=== PATIENT | male | born 1980 | race Caucasian/White ===

== ENCOUNTER 2017-03-25 09:05 | Outpatient (CLI) | payer OTHER | END 2017-03-25 09:06 | disposition home or self-care (01) | DX: M85.89 Other specified disorders of bone density and structure, multiple sites (principal) ==

== ENCOUNTER 2019-09-27 14:00 | Outpatient (CLI) | payer OTHER ==
--- NOTE | 2019-09-28 15:51 | DEXA Report ---
Reason: OSTEOPENIA Procedure Date: 09/27/2019 Accession Number: [id number] / [id number] Procedure: DEX - Dexa Spine and/or Hip CPT Code: Final Report FULL RESULT: EXAM: Dexa Spine and/or Hip DATE: 09/27/2019 3:31 PM CLINICAL HISTORY: OSTEOPENIA TECHNIQUE: Dual energy x-ray absorptiometry (DXA) was performed on a [employer] System. Regions measured are the AP Spine, femoral neck, and if needed forearm. COMPARISON: 03/25/2017 In accordance with the International Society for Clinical Densitometry (ISCD) guidelines, data from previous exams may be reanalyzed using current recommendations and techniques. This is done to allow a more accurate basis for comparison with the current study. FINDINGS: The data for the lumbar spine is as follows: BMD (g/cm/cm) T-SCORE Z-SCORE REGION L1 1.064 -0.8 -1.2 L2 1.018 -1.8 -2.2 L3 1.044 -1.6 -2.0 L4 0.987 -2.1 -2.5 TOTAL 1.027 -1.6 -2.0 NOTE: All evaluable vertebrae are used for classification The data for the hip is as follows: BMD (g/cm/cm) T-SCORE Z-SCORE REGION Neck 0.807 -2.0 -1.9 TOTAL 0.830 -1.9 -1.9 NOTE: The femoral neck or total proximal femur, whichever is lowest, is used for classification. DXA RESULTS SUMMARY: Spine SCAN DATE AGE BMD CHANGE VS CHANGE VS PREVIOUS PREVIOUS % 09/27/2019 41.5 1.027 -0.015 -1.4 03/25/2017 37.0 1.042 * Denotes significant change at the 95% confidence level. Denotes dissimilar scan types or analysis methods. DXA RESULTS SUMMARY: Hip SCAN DATE AGE BMD CHANGE VS CHANGE VS PREVIOUS PREVIOUS % 09/27/2019 41.5 0.830 0.013 1.6 03/25/2017 37.0 0.817 * Denotes significant change at the 95% confidence level. Denotes dissimilar scan types or analysis methods. IMPRESSION: THE WHO CLASSIFICATION BASED ON THE INTERNATIONAL REFERENCE STANDARD IS OSTEOPENIA. THE FRACTURE RISK IS INCREASED. RECOMMENDATION: Patients with diagnosis of osteoporosis or osteopenia should have regular bone mineral density assessment. For those eligible for Medicare, routine testing is allowed once every 2 years. Testing frequency can be increased for patients who have rapidly progressing disease or for those who are receiving medical therapy to restore bone mass. COMMENT: World Health Organization (WHO) definitions for osteoporosis and osteopenia: NORMAL BMD: T-score at -1.0 or higher, fracture risk is low OSTEOPENIA BMD: T-score between -1.0 and -2.5, fracture risk is increased. OSTEOPOROSIS BMD: T-score at -2.5 or lower, fracture risk is high. National Osteoporosis Foundation recommends: 1. Obtain adequate dietary calcium (at least 1200 mg per day) and vitamin D (400-800 international units per day). 2. Participate, as appropriate, in regular weightbearing and muscle-strengthening exercise. 3. Avoid tobacco use and reduce alcohol and caffeine intake. 4. For more detailed information see the website at www.NOF.org.
== END 2019-09-27 14:01 | disposition home or self-care (01) ==
LOC: DI 14:00
DX: M85.89 Other specified disorders of bone density and structure, multiple sites (principal)
CPT/HCPCS: 77080

== ENCOUNTER 2021-06-01 12:23 | Outpatient (CLI) | payer OTHER | END 2021-06-01 23:59 | disposition home or self-care (01) | LOC: LAB.N 12:23 | PROVIDERS: ATTEND Physician Assistant Medical | DX: B37.42 Candidal balanitis (principal) | CPT/HCPCS: 87086 ==

== ENCOUNTER 2022-03-19 10:24 | Outpatient (CLI) | payer OTHER ==
--- NOTE | 2022-03-19 11:29 | DEXA Report ---
PROCEDURE: Dexa Spine and/or Hip INDICATIONS: OSTEOPENIA TECHNIQUE: Dual energy x-ray absorptiometry (DXA) was performed on a [employer] System. Regions measur ed are the AP Spine, femoral neck, and if needed forearm. COMPARISON: September 27, 2019. FINDINGS: Lumbar Spine: Bone Mineral Density 1.007 g/cm/cm,T score -1.8, osteopenia; -1.9% change. Left Hip: Bone Mineral Density 0.825 g/cm/cm,T score -1.9, osteopenia; -0.6% change Left Femoral Neck: Bone Mineral Density 0.816 g/cm/cm, T score -2.0, osteopenia (T score greater or equal to -1.0: NORMAL) (T score from -1.1 to -2.4: OSTEOPENIA) (T score less than or equal to -2.5 to: OSTEOPOROSIS) Impression: Bone mineral density as detailed above. Patients with diagnosis of osteoporosis or osteopenia should have regular bone mineral density assess ment. For those eligible for Medicare, routine testing is allowed once every 2 years. Testing frequ ency can be increased for patients who have rapidly progressing disease or for those who are receivin g medical therapy to restore bone mass. Reviewed by: Edwardo Mansfield MD on 03/19/2022 11:28 AM PDT Approved by: Edwardo Mansfield MD on 03/19/2022 11:28 AM PDT Station ID: [id number]
== END 2022-03-19 10:25 | disposition home or self-care (01) ==
LOC: DI 10:24
PROVIDERS: ATTEND Internal Medicine
DX: M85.89 Other specified disorders of bone density and structure, multiple sites (principal)

== ENCOUNTER 2022-07-26 08:30 | Outpatient (CLI) | payer OTHER | END 2022-07-26 08:31 | disposition home or self-care (01) | LOC: SC 08:30 | PROVIDERS: ATTEND Nurse Practitioner Family | DX: R09.02 Hypoxemia (principal) | CPT/HCPCS: 95806 ==

== ENCOUNTER 2022-08-11 09:29 | Outpatient (CLI) | payer OTHER ==
[2022-08-11 09:46] VITALS: BP 116/70
--- NOTE | 2022-08-11 09:46 | SLEEP CARE CONSULTATION ---
Information from patient questionnaire entered by Yohannes Arvizu. I have reviewed and concur with the information entered by Yohannes Arvizu. This document represents the service I personally performed and the decisions made by , Sun Ramirez ARNP. History of Present Illness Service Date and Time: 08/11/2022928 Initial [place] Sleepiness Scale score: 7 (06/30/2022) Current [place] Sleepiness Scale score: 14 (08/11/22) Additional HPI information: DAHLIA READ returns for follow up and results of the recently performed home sleep study. The patient was informed of the following findings: No significant sleep disordered breathing with an average AHI of 4.1 and ángel to oxygen saturation of 88%. Patient did not sleep supine during the study. This was a fair study due to partial loss of airflow signal. I explained the pathophysiology behind obstructive sleep apnea. Patient does not have sleep apnea and was advised how weight gain could increase the risk of developing sleep apnea in the future. Patient was cautioned about risks of drowsy driving until sleepiness symptoms resolve. Sleep Study - Results Type of Sleep Study: Home sleep study (DONE ON 07/27/22) Prior sleep studies: No Polysomnography/Home Sleep Study results: Physician Impression: The quality of the study is fair due to partial loss of airflow signal. The length of the study is adequate (> 240 minutes). Please also see the tabulated and graphic data. 1. No significant sleep disordered breathing, with an AHI of 4.1/hr and ángel SaO2 of 88%. During the study, the patient had 7 apneas (7 obstructive, 0 central, 0 mixed) and 9 hypopneas. The longest episode lasted 81.5 seconds. The patient did not sleep supine during this study. 2. Hypoxemia (ICD-10 R09.02), minimal, with the lowest oxygen saturation of 88 % and 1.0 minutes with SaO2 under 90%. Baseline oxygen saturation was normal (Average oxygen saturation was 93%). Allergies and Home Medications Drug allergies reviewed: Yes (penicillin, iodine) Home medication list reviewed: Yes (no changes) Review of Systems Review of systems same as previous: Yes (no changes) Physical Exam Vital signs obtained and entered by: SAMMY PALMA Blood Pressure: 116/70 (LEFT ARM ) Cuff size: regular Heart Rate: 75 O2 Saturation: 97 Height: 6 ft 1.5 in Weight: 193 lb Body Mass Index: 25.1 BMI Classification: Overweight Impression and Plan 1. Suspected Obstructive Sleep Apnea-Hypopnea Syndrome, as suggested by a history of loud and irregular snoring, observed cessation of breath while asleep, frequent awakening during the night, unrefreshed sleep, and excessive daytime sleepiness. Patient home study was fair due to partial loss of airflow signal and he did not sleep supine, so I recommend proceeding to an in lab polysomnography to confirm the diagnosis and to assess severity. I obtained agreement to proceed. The pathophysiology of obstructive sleep apnea-hypopnea syndrome was discussed with the patient and health risks of cardiovascular and cerebrovascular disease if not treated. Risks of drowsy driving discussed in detail and patient advised to avoid long distance driving and to sinker puller at the first sign of drowsiness. Patient agreed to plan. * Schedule polysomnography * Review instructions provided by trained office staff on how to prepare for the sleep study. * Return for follow-up after sleep study completed. Visit Type: In Office Time Spent with Patient (minutes): 12 Provider Statement: I spent 100% of the Face to Face Visit with the patient with greater than 50% spent counseling the patient and coordination of care.
== END 2022-08-11 09:30 | disposition home or self-care (01) ==
LOC: SC 09:29
PROVIDERS: ATTEND Nurse Practitioner Family
DX: R06.83 Snoring (principal); G47.8 Other sleep disorders; R06.81 Apnea, not elsewhere classified; G47.10 Hypersomnia, unspecified
CPT/HCPCS: 99212

== ENCOUNTER 2022-09-06 20:22 | Outpatient (CLI) | payer OTHER | END 2022-09-06 20:23 | disposition home or self-care (01) | LOC: SC 20:22 | PROVIDERS: ATTEND Nurse Practitioner Family | DX: R06.83 Snoring (principal); G47.8 Other sleep disorders; R06.81 Apnea, not elsewhere classified; G47.10 Hypersomnia, unspecified | CPT/HCPCS: 95810 ==

== ENCOUNTER 2022-09-23 12:35 | Outpatient (CLI) | payer OTHER ==
[2022-09-23 13:10] VITALS: BP 110/64
--- NOTE | 2022-09-23 13:10 | SLEEP CARE CONSULTATION ---
Information from patient questionnaire entered by Aylin Quiros. I have reviewed and concur with the information entered by Aylin Quiros. This document represents the service I personally performed and the decisions made by , Sun Ramirez ARNP. History of Present Illness Service Date and Time: 09/23/2022 1235 Initial [place] Sleepiness Scale score: 7 (06/30/2022) Current [place] Sleepiness Scale score: 18 (09/23/2022) Additional HPI information: DAHLIA READ returns for follow up and results of the recently performed polysomnography. The patient was informed of the following findings: No significant sleep disordered breathing with an average AHI of 2.5 and ángel oxygen saturation of 90%. I explained the pathophysiology behind obstructive sleep apnea. Patient does not have sleep apnea and was advised how weight gain could increase the risk of developing sleep apnea in the future. Patient has light to moderate snoring. Snoring can be reduced by weight loss. Weight loss is best achieved with diet consult. Patient instructed to contact PCP for referral. Snoring can also be treated with an oral appliance from a dentist. Advised to check insurance coverage. In addition, an ENT evaluation can be do to see if other treatment is indicated. Patient was cautioned about risks of drowsy driving until sleepiness symptoms resolve. Sleep Study - Results Type of Sleep Study: Polysomnography (09/06/2022) Prior sleep studies: No Polysomnography/Home Sleep Study results: IMPRESSION: The quality of the study is good. The patient had reduced sleep efficiency due to sleep onset insomnia and a few prolonged awakenings during the night. The sleep architecture was abnormal for sleep fragmentation and reduced amount of time spent in REM sleep. Respiratory monitoring showed no significant sleep disordered breathing obstructive sleep apnea-hypopnea (AHI = 2.5) or hypoxia (ángel oxygen saturation of 90%). The few respiratory events occurred mainly during supine REM sleep (supine AHI = 3.5; non-supine = 0.67). Snore was light to moderate in intensity. There was no significant periodic leg movement of sleep. Cardiac rhythm was normal sinus rhythm without significant arrhythmia. No abnormal behavior (parasomnia) observed during the night. Allergies and Home Medications Drug allergies reviewed: Yes (iodine, penicillin) Home medication list reviewed: Yes (no changes) Allergy and home medication list: Allergies iodine Allergy (Verified 08/11/22 09:46) Penicillins Allergy (Verified 08/11/22 09:46) Review of Systems Review of systems same as previous: Yes (no changes) Physical Exam Vital signs obtained and entered by: SAMMY TONEY Blood Pressure: 110/64 (LEFT ARM) Cuff size: regular Heart Rate: 78 O2 Saturation: 95 Height: 6 ft 1.5 in Weight: 202 lb 12.8 oz Body Mass Index: 26.4 BMI Classification: Overweight Impression and Plan Snoring but no significant sleep disordered breathing. Patient advised that often weight loss will reduce snoring as well as apnea risk. An oral appliance can also be used for snoring. This would require a dental consultation. Patient cautioned not to use other online appliances as can cause bite issues. A list of accredited dentists in [facility] and one local dentist who makes oral appliances is available in office. Patient is advised to check if insurance will cover. An ENT consult can also be helpful to determine if any other treatment is an option. * Attempt to lose weight * Avoid alcohol consumption near bedtime * The patient is cautioned about driving until sleepiness is completely resolved. * Return as needed for follow up. Counseling Topics: Weight loss health impact Visit Type: In Office Time Spent with Patient (minutes): 10 Provider Statement: I spent 100% of the Face to Face Visit with the patient with greater than 50% spent counseling the patient and coordination of care.
== END 2022-09-23 12:36 | disposition home or self-care (01) ==
LOC: SC 12:35
PROVIDERS: ATTEND Nurse Practitioner Family
DX: R06.83 Snoring (principal); E66.3 Overweight; Z68.26 Body mass index [BMI] 26.0-26.9, adult
CPT/HCPCS: 99212

== ENCOUNTER 2023-03-11 13:38 | Outpatient (CLI) | payer OTHER ==
--- NOTE | 2023-03-11 16:34 | MRI Report ---
PROCEDURE: CERVICAL SPINE WO INDICATIONS: CERVICALGIA TECHNIQUE: Noncontrast sagittal T1 spin echo and T2 fast spin echo, sagittal STIR, foraminal oblique sagittal T2 fast spin echo, and axial gradient echo or T2 fast spin echo through the cervical spine. COMPARISON: None. FINDINGS: Image quality: Excellent. Alignment and Curvature: There is normal bony alignment. Bone Marrow: Marrow demonstrates normal overall signal. Spinal Cord: Visualized spinal cord has normal size and signal. No cerebellar tonsillar herniation. Paraspinous Soft Tissues: No paravertebral masses. Prevertebral soft tissues are normal in thicknes s. C2-C3: Normal in appearance. C3-C4: Normal in appearance. C4-C5: Normal in appearance. C5-C6: Normal in appearance. C6-C7: Normal in appearance. C7-T1: Normal in appearance. IMPRESSION: MRI of the cervical spine without acute abnormalities. No significant spondylitic changes identified. No significant spinal canal or neuroforaminal stenosis visualized. Reviewed by: Asad Velazquez MD on 03/11/2023 4:32 PM PDT Approved by: Asad Velazquez MD on 03/11/2023 4:32 PM PDT Station ID: [id number]
== END 2023-03-11 13:39 | disposition home or self-care (01) ==
LOC: DI 13:38
PROVIDERS: ATTEND General Practice
DX: M54.2 Cervicalgia (principal)

== ENCOUNTER 2023-03-30 20:01 | Emergency (ER) | payer OTHER ==
[2023-03-30] MEDS ORDERED: IBUPROFEN 600 MG TABLET PO STA (20:44)
--- OUTSIDE RECORDS SUMMARY | 2023-03-30 20:49 | EXTERNAL MEDICAL SUMMARY RPT | Continuity of Care Document ---
Author Name Unknown Address [address] [place] [address] Phone Organization [facility] Address [address] [place] [address] Phone Care Team Providers Care Optomechanical Engineer Name Role Phone Unavailable Unavailable Unavailable Meena Meza, Ruben Unavailable Unavailable Clayton Patient Registrar, Kathya Unavailable U navdeidra Arnold Patient Registrar, Kathya Unavailable U navailespinoza Arnold Patient Registrar, Kathya Unavailable U patricia Abreu Rn, Or, Marilu Unavailable Unavailable Problems date description facility 2023-01-10 00:00 Anal skin tag All 2023-01-10 00:00 Anal skin tag All 2023-01-10 00:00 Anal skin tag All 2023-01-10 00:00 Anal skin tag All 2023-01-10 00:00 Anal skin tag All 2023-01-10 00:00 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 All 2023-01-10 00:00 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 All 2023-01-10 00:00 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 All 2023-01-10 00:00 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 All 2023-01-10 00:00 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 All 2023-01-10 00:00 Contracture of wrist joint All 2023-01-10 00:00 Contracture of wrist joint All 2023-01-10 00:00 Contracture of wrist joint All 2023-01-10 00:00 Contracture of wrist joint All 2023-01-10 00:00 Contracture of wrist joint All 2023-01-10 00:00 Other and unspecified hyperlipi demia All 2023-01-10 00:00 Other and unspecified hyperlipi demia All 2023-01-10 00:00 Other and unspecified hyperlipi demia All 2023-01-10 00:00 Other and unspecified hyperlipi demia All 2023-01-10 00:00 Other and unspecified hyperlipi demia All 2023-01-10 00:00 Osteopenia All 2023-01-10 00:00 Osteopenia All 2023-01-10 00:00 Osteopenia All 2023-01-10 00:00 Osteopenia All 2023-01-10 00:00 Osteopenia All 2023-01-10 00:00 Dyslipidemia All 2023-01-10 00:00 Dyslipidemia All 2023-01-10 00:00 Dyslipidemia All 2023-01-10 00:00 Dyslipidemia All 2023-01-10 00:00 Dyslipidemia All 2023-01-10 00:00 Unspecified hemorrhoids without mention of complication All 2023-01-10 00:00 Unspecified hemorrhoids without mention of complication All 2023-01-10 00:00 Unspecified hemorrhoids without mention of complication All 2023-01-10 00:00 Unspecified hemorrhoids without mention of complication All 2023-01-10 00:00 Unspecified hemorrhoids without mention of complication All 2023-01-10 00:00 Osteoporosis All 2023-01-10 00:00 Osteoporosis All 2023-01-10 00:00 Osteoporosis All 2023-01-10 00:00 Osteoporosis All 2023-01-10 00:00 Osteoporosis All 2023-01-10 00:00 Hemorrhoids All 2023-01-10 00:00 Hemorrhoids All 2023-01-10 00:00 Hemorrhoids All 2023-01-10 00:00 Hemorrhoids All 2023-01-10 00:00 Hemorrhoids All 2023-01-10 00:00 Contracture of forearm joint Al l 2023-01-10 00:00 Contracture of forearm joint Al l 2023-01-10 00:00 Contracture of forearm joint Al l 2023-01-10 00:00 Contracture of forearm joint Al l 2023-01-10 00:00 Contracture of forearm joint Al l 2023-01-10 00:00 Osteoporosis, unspecified All 2023-01-10 00:00 Osteoporosis, unspecified All 2023-01-10 00:00 Osteoporosis, unspecified All 2023-01-10 00:00 Osteoporosis, unspecified All 2023-01-10 00:00 Osteoporosis, unspecified All 2023-01-10 00:00 Disorder of bone and cartilage, unspecified All 2023-01-10 00:00 Disorder of bone and cartilage, unspecified All 2023-01-10 00:00 Disorder of bone and cartilage, unspecified All 2023-01-10 00:00 Disorder of bone and cartilage, unspecified All 2023-01-10 00:00 Disorder of bone and cartilage, unspecified All 2023-01-10 00:00 Chronic myeloid leukemia All 2023-01-10 00:00 Chronic myeloid leukemia All 2023-01-10 00:00 Chronic myeloid leukemia All 2023-01-10 00:00 Chronic myeloid leukemia All 2023-01-10 00:00 Chronic myeloid leukemia All 2023-01-10 00:00 Chronic myeloid leuk emia, BCR/ABL-positive, not having achieved remission All 2023-01-10 00:00 Chronic myeloid leuk emia, BCR/ABL-positive, not having achieved remission All 2023-01-10 00:00 Chronic myeloid leuk emia, BCR/ABL-positive, not having achieved remission All 2023-01-10 00:00 Chronic myeloid leuk emia, BCR/ABL-positive, not having achieved remission All 2023-01-10 00:00 Chronic myeloid leuk emia, BCR/ABL-positive, not having achieved remission All 2023-01-10 00:00 Hyperlipidemia, unspecified All 2023-01-10 00:00 Hyperlipidemia, unspecified All 2023-01-10 00:00 Hyperlipidemia, unspecified All 2023-01-10 00:00 Hyperlipidemia, unspecified All 2023-01-10 00:00 Hyperlipidemia, unspecified All 2023-01-10 00:00 Residual hemorrhoidal skin tags All 2023-01-10 00:00 Residual hemorrhoidal skin tags All 2023-01-10 00:00 Residual hemorrhoidal skin tags All 2023-01-10 00:00 Residual hemorrhoidal skin tags All 2023-01-10 00:00 Residual hemorrhoidal skin tags All 2023-01-10 00:00 Unspecified hemorrhoids All 2023-01-10 00:00 Unspecified hemorrhoids All 2023-01-10 00:00 Unspecified hemorrhoids All 2023-01-10 00:00 Unspecified hemorrhoids All 2023-01-10 00:00 Unspecified hemorrhoids All 2023-01-10 00:00 Contracture, unspecified wrist All 2023-01-10 00:00 Contracture, unspecified wrist All 2023-01-10 00:00 Contracture, unspecified wrist All 2023-01-10 00:00 Contracture, unspecified wrist All 2023-01-10 00:00 Contracture, unspecified wrist All 2023-01-10 00:00 Age-related osteopor osis without current pathological fracture All 2023-01-10 00:00 Age-related osteopor osis without current pathological fracture All 2023-01-10 00:00 Age-related osteopor osis without current pathological fracture All 2023-01-10 00:00 Age-related osteopor osis without current pathological fracture All 2023-01-10 00:00 Age-related osteopor osis without current pathological fracture All 2023-01-10 00:00 Other specified diso rders of bone density and structure, unspecified site All 2023-01-10 00:00 Other specified diso rders of bone density and structure, unspecified site All 2023-01-10 00:00 Other specified diso rders of bone density and structure, unspecified site All 2023-01-10 00:00 Other specified diso rders of bone density and structure, unspecified site All 2023-01-10 00:00 Other specified diso rders of bone density and structure, unspecified site All Procedures date description facility 2023-01-11 00:00 Visit Code Hold All 2023-01-11 00:00 Visit Code Hold All 2023-01-11 00:00 Visit Code Hold All 2023-02-22 00:00 Visit Code Hold All Social History date description facility 2023-01-10 00:00 Former smoker All 2023-01-10 00:00 Former smoker All 2023-01-10 00:00 Former smoker All 2023-01-10 00:00 Former smoker All 2023-01-10 00:00 Former smoker All Vital Signs date measurement value units 2023-01-11 00:00 BMI 26.35 kg/m2 2023-01-11 00:00 BP_diastolic 91 mmHg 2023-01-11 00:00 BP_systolic 133 mmHg 2023-01-11 00:00 heart_rate 71 /min 2023-01-11 00:00 height_metric 185.42 cm 2023-01-11 00:00 height_standard 73 in 2023-01-11 00:00 respiration_rate 14 /min 2023-01-11 00:00 temperature_metric 36.44 C 2023-01-11 00:00 temperature_standard 97.6 F 2023-01-11 00:00 weight_metric 90.26 kg 2023-01-11 00:00 weight_standard 199 lb 2023-02-22 00:00 BMI 27.28 kg/m2 2023-02-22 00:00 BP_diastolic 79 mmHg 2023-02-22 00:00 BP_systolic 132 mmHg 2023-02-22 00:00 heart_rate 71 /min 2023-02-22 00:00 height_metric 185.42 cm 2023-02-22 00:00 height_standard 73 in 2023-02-22 00:00 respiration_rate 14 /min 2023-02-22 00:00 temperature_metric 36.67 C 2023-02-22 00:00 temperature_standard 98 F 2023-02-22 00:00 weight_metric 93.44 kg 2023-02-22 00:00 weight_standard 206 lb
--- NOTE | 2023-03-30 20:52 | ED Physician Documentation ---
PD HPI UPPER EXT INJURY - Stated complaint Stated Complaint: L ARM SWELLING - Chief complaint Chief Complaint: Ext Problem - History obtained from History obtained from: Patient, Family () - Additonal information Additional information: 43-year-old man, R handed, with history of leukemia in remission on maintenance medication since age 16, presents with left forearm swelling and pain X 1 day. pain radiates up to the L chest and is associated with numbness to L fingertips. 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 denies fever. PD PAST MEDICAL HISTORY - Present Medications Home Medications: Ambulatory Orders Medication Instructions Recorded Confirmed Meloxicam [Mobic] 7.5 PO DAILY 03/30/23 - Allergies Allergies/Adverse Reactions: Allergies Allergy/AdvReac Type Severity Reaction Status Date / Time iodine Allergy Verified 09/23/22 13:01 Penicillins Allergy Verified 09/23/22 13:01 PD ED PE NORMAL - Vitals Vital signs reviewed: Yes - General General: Alert and oriented X 3, No acute distress, Well developed/nourished - HEENT HEENT: Atraumatic, PERRL, EOMI - Derm Derm: Normal color, Warm and dry - Extremities Extremities: No deformity, Other (no visible swelling. discomfort to palpation of L chest wall, L posterior arm, and L anterior forearm. L radial pulse 2+. normal sensation and movement of fingertips) - Neuro Neuro: No motor deficit, No sensory deficit - Psych Psych: Normal mood, Normal affect Results - Vitals Vitals: Vital Signs - 24 hr 03/30/23 03/30/23 03/30/23 20:18 20:20 22:20 Temperature 36.8 C Heart Rate 73 84 70 Respiratory 18 12 16 Rate Blood Pressure 147/99 H 135/84 H 125/74 O2 Saturation 99 97 100 Oxygen O2 Source Room air PD Medical Decision Making - ED course ED course: 43yM p/w LUE subjective swelling and pain with no objective swelling. discomfort to palpation. possible superficial thrombophlebitis vs muscle strain. NSAIDs provided and ultrasound LUE ordered. pain improved s/p analgesia. ultrasound noncontributory. Return precautions given. Plan to follow-up with primary care provider and physical therapy. Departure - Departure Disposition: 01 Home, Self Care Clinical Impression: Pain in extremity Condition: Good Instructions: ED RICE Comments: Your ultrasound uncovered no sign of blood clot. Please follow-up with your primary care provider and physical therapist. Return to the emergency department for new or worsening symptoms or other concerns.
[2023-03-30 22:43] VITALS: BP 125/74
--- NOTE | 2023-03-31 00:36 | Ultrasound Report ---
PROCEDURE: Duplex Ext Veins Left INDICATIONS: LUE swelling, hx clots TECHNIQUE: Real-time imaging, as well as color and pulse Doppler interrogation, was performed of the left upper extremity deep veins from the inferior neck to the antecubital fossa. COMPARISON: None. FINDINGS: The internal jugular vein, visualized portions of the subclavian vein, axillary, and brach ial veins are free of intraluminal thrombus. Where physically possible, the veins are normally compr essible. Color and pulse Doppler demonstrate normal intraluminal flow, with expected phasicity and p ulsatility. Additional scanning of the cephalic and basilic veins of the superficial system demonstr ate normal compressibility, without thrombus. IMPRESSION: 1. No evidence of deep venous thrombosis in the left upper extremity. Reviewed by: Jimmie Pruitt MD on 03/31/2023 12:34 AM PDT Approved by: Jimmie Pruitt MD on 03/31/2023 12:34 AM PDT Station ID: [id number]
== END 2023-03-31 | disposition home or self-care (01) ==
LOC: ED 20:01
DX: M79.632 Pain in left forearm (principal)
CPT/HCPCS: 93971; 99283; 99284; A9270